=== PATIENT | male | born 1960 | race African-American/Black ===

== ENCOUNTER 2020-12-10 14:23 | Emergency (ER) | payer SELFPAY ==
[~2020-12-10] VITALS: Ht 175.3 cm; Wt 89.0 kg
[2020-12-10 14:54] VITALS: BP 148/81
[2020-12-10] MEDS ORDERED: IBUP-2029 MT (16:44)
== END 2020-12-10 16:58 | disposition home or self-care (01) ==
LOC: ER 16:29
DX: M25.512 Pain in left shoulder (principal); R03.0 Elevated blood-pressure reading, without diagnosis of hypertension
CPT/HCPCS: 99282